=== PATIENT | female | born 1980 | race Two or more races ===

== ENCOUNTER → 2024-05-01 | Outpatient (CLI) | payer MEDICAID, SELFPAY ==
--- NOTE | 2024-05-01 08:45 | XR_ITS ---
Examination: Screening digital mammography, bilateral Computer aided detection 3-D breast Tomosynthesis, bilateral Date and time of exam: May 01, 2024 at 0906 hrs. Indication: Screening Technique: Nonmagnified MLO, CC views of the breasts to been obtained, reconstructed from 3-D Tomosynthesis images. R2 computer aided detection program utilized for evaluation of suspicious masses and/or abnormal calcifications. 3-D Tomosynthesis images obtained. Findings: The breasts are heterogeneously dense, which may obscure small masses Benign calcifications. No suspicious masses Impression: BI-RADS category II: Benign Findings. Recommend 1 year follow-up mammogram.
== END | disposition home or self-care (01) ==
PROVIDERS: PCP Physician Assistant; Referring Provider Physician Assistant; Visit Provider Physician Assistant
DX: Z12.31 Encounter for screening mammogram for malignant neoplasm of breast (principal); R92.323 Mammographic fibroglandular density, bilateral breasts; R92.1 Mammographic calcification found on diagnostic imaging of breast
CPT/HCPCS: 77063; 77067

== ENCOUNTER 2024-11-09 04:51 | Day surgery (SDC) | payer MEDICAID, SELFPAY ==
[2024-11-09] VITALS (11 sets, daily range): BP systolic 86–104; BP diastolic 47–73; PULSE 58–79; RESP 12–18; TEMP 36.3–36.8; O2SAT 89–100; BMI 29.2
--- NOTE | 2024-11-09 05:16 | PD.EDRME ---
Rapid Medical Screening Exam RME Arrival date/time: 11/09/24 04:51 This is a case of 44-year-old female who came in in the emergency room due to vaginal bleeding today patient is 8 weeks patient was already seen by the OB and was told that she is have miscarriage severe vaginal bleeding today this patient decided to start consult here in the emergency room Chief Complaint: OB/Uterine Contractions Time Seen by Provider: 11/09/24 05:18 Vital signs: Vital Signs Temperature 98.2 F 11/09/24 05:05 Pulse Rate 73 11/09/24 05:05 Respiratory Rate 18 11/09/24 05:05 Blood Pressure 102/69 11/09/24 05:05 Pulse Oximetry (%) 98 11/09/24 05:05 Oxygen Delivery Method Room Air 11/09/24 05:05
--- NOTE | 2024-11-09 05:18 | XR_ITS ---
Examination: Complete OB ultrasound, less than 14 weeks, transabdominal Date and time of exam: November 09, 2024, 0558 hours INDICATIONS: Vaginal bleeding beginning 3 hours ago Technique: Obstetrical ultrasound images less than 14 weeks performed via transabdominal imaging Findings: Uterus 10.1 cm endometrium 2.0 cm No intrauterine gestation, no pole, no cardiac activity Right ovary 3.0 cm arterial flow The study terminated before diagnostic assessment left ovary IMPRESSION: Limited study Thickened endometrium No intrauterine gestation, specifically no gestational sac no pole, no cardiac activity
[2024-11-09 06:13] LABS: Basophils # (Auto) 0.1 Thou/mm3 (0.0-0.2); Basophils % (Auto) 1 % (0-2.5); Eosinophils # (Auto) 0.2 Thou/mm3 (0.0-0.5); Eosinophils % (Auto) 3 % (0-10); Hematocrit 37.5 % (36.0-46.0); Hemoglobin 12.3 g/dL (12.0-16.0); Immature Granulocytes Auto 0.02 Thou/mm3 (0.00-0.00); Lymphocytes # (Auto) 3.0 Thou/mm3 (1.0-4.8); Lymphocytes % (Auto) 34 % (10-50); Mean Corpuscular HGB Conc 32.8 g/dl (31.0-37.0); Mean Corpuscular Hemoglobin 27.7 pg (25.0-35.0); Mean Corpuscular Volume 85 fL (80-100); Monocytes # (Auto) 0.7 Thou/mm3 (0.0-0.8); Monocytes % (Auto) 7 % (0-12); Neutrophils # (Auto) 4.9 Thou/mm3 (1.8-7.7); Neutrophils % (Auto) 55 % (37-80); Nucleated Red Blood Cell # 0.00 Thou/mm3 (0.00-0.00); Nucleated Red Blood Cell % 0 /100 WBC (0); Platelet Count 225 Thou/mm3 (140-440); RDW Standard Deviation 55.7 fL (36.4-46.3); Red Blood Count 4.44 Miln/mm3 (4.00-5.20); White Blood Count 8.9 Thou/mm3 (3.6-11.0)
[2024-11-09] MEDS: SODIUM CHLORIDE 0.9% 1000 ML 1,000 ML 999 ML IV (06:18)
--- NOTE | 2024-11-09 06:39 | PD.EDVAGBL ---
ED OB Contraction Preg RMI/HPI General Chief complaint: Vaginal Bleeding Stated complaint: POSS MISCARRIAGE /VAG BLEEDING Time Seen by Provider: 11/09/24 05:18 Arrival date/time: 11/09/24 04:51 RME / HPI RME / HPI Narrative: 11/09/24 04:51 This is a case of 44-year-old female who came in in the emergency room due to vaginal bleeding today patient is 8 weeks patient was already seen by the OB and was told that she is have miscarriage severe vaginal bleeding today this patient decided to start consult here in the emergency room DR. ILA MAYNARD ED EVALUATION 44 year old female who is and ~ 8 weeks gestational age presents to the ED with vaginal bleeding that began early this morning. The patient reports that approximately 2 weeks ago, she was evaluated by her OB Dr. Portillo, who performed an in-office ultrasound and confirmed demise. She began experiencing light spotting about one week ago, which progressed to heavy vaginal bleeding starting around 03:30 AM today. States she has saturated one pad and one adult diaper over the past 3 hours. Just prior to arrival, she reports passing tissue-like material. Associated symptoms include lower back pain and a generalized sense of weakness. She denies fever, abdominal cramping, nausea, vomiting, or syncope. Related Data Home Medications ?Medication ?Instructions ?Recorded ?Confirmed prenat.vits,susan,sgq-ayhu-hiuqv 1 tab PO QDAY 12/03/21 12/03/21 Previous Rx's ?Medication ?Instructions ?Recorded docusate sodium 100 mg capsule 100 mg PO BID #60 caps 12/03/21 (Colace) ibuprofen 600 mg tablet 600 mg PO Q6H PRN pain #90 tabs 12/03/21 Allergies Allergy/AdvReac Type Severity Reaction Status Date / Time No Known Allergies Allergy Verified 12/03/21 15:34 Review of Systems Review of Systems Systems Reviewed: All systems reviewed, normal except as documented Past Medical History Past Medical History MUSCULOSKELETAL: Positive Musculoskeletal Disorders (INJURED DISK) OTHER HISTORY: Positive Hospitalization (PREVIOUS CHILDBIRTH AND D&C) Family History FAMILY HISTORY: Positive Family Cardiac Disorders (PT'S MOTHER HAS HIGH BP) and Family Surgery (PT'S FATHER HAD A TUMOR REMOVED FROM HIS HEAD) Surgical History SURGICAL: Negative Section Social History SMOKING STATUS: Never smoker ED Exam Narrative Physical exam: GENERAL APPEARANCE: alert and oriented x 4, well-developed, well-nourished, appears pale and clammy HEENT: Normocephalic, atraumatic; pupils equal, round, reactive to light; EOMI; mucous membranes pink, moist; oropharynx clear NECK: Supple LUNGS: CTABL; no wheezes, no rales, no rhonchi HEART: Regular rate, regular rhythm; normal S1, S2; no murmurs ABDOMEN: non distended; normal BS; soft, no tenderness, no guarding, no rebound; no masses, no organomegaly, no hernia PELVIC: Passing large clots and actively bleeding from OS, no products of conception visible EXTREMITIES: atraumatic; no edema NEUROLOGIC: awake; alert and oriented x4; cranial nerves II-XII grossly intact; no focal sensory or motor deficits PSYCHIATRIC: appropriate mood and affect SKIN: warm, pale, clammy; no rashes Course Quality Measures none Orders Category Date Time Status Patient Condition Routine Admission 11/09/24 08:[address] in Surgical Day Care Routine Admission 11/09/24 08:21 Active Activity as Tolerated Routine Care 11/09/24 08:21 Ordered COVID-19 Screening Questionnaire NOW Care 11/09/24 08:12 Completed DC Home When Criteria Met . Care 11/09/24 09:17 Completed Decision to Admit X1 Care 11/09/24 08:12 Completed In and Out Catheter X1 Care 11/09/24 08:21 Completed Obtain Written Consent For: NOW Care 11/09/24 08:21 Completed Discharge Routine Discharge 11/09/24 10:41 Active US OB <= 14 weeks fetus Stat Exams 11/09/24 05:18 Completed Beta HCG,Quantitative Stat Lab 11/09/24 06:00 Completed CBC Stat Lab 11/09/24 06:00 Completed Comprehensive Metabolic Panel Stat Lab 11/09/24 06:00 Completed Type and Screen Stat Lab 11/09/24 06:00 Completed Acetaminophen Ivpb [Ofirmev Inj] Med 11/09/24 06:54 Discontinued 1,000 mg in 100 ml IV X1 Methylergonovine Inj [Methergine Inj] Med 11/09/24 06:51 Discontinued 0.2 mg IM X1 ONE Midazolam Inj [Versed Inj] Med 11/09/24 09:10 Discontinued 2 mg .ROUTE .STK-MED ONE Ondansetron Inj [Zofran Inj] Med 11/09/24 09:17 Discontinued 4 mg IVP Q6HR PRN Propofol Inj [Diprivan Inj] Med 11/09/24 09:10 Discontinued 200 mg IV .STK-MED ONE Sevoflurane [Ultane] Med 11/09/24 09:12 Discontinued 15 min INH .STK-MED ONE Sodium Chloride 0.9% 1000 ml [Ns] 1,000 ml Med 11/09/24 06:16 Discontinued IV 999 mls/hr Tranexamic Acid 1,000 mg Ivpb [Tranexamic Acid Ivpb] Med 11/09/24 06:53 Discontinued 1,000 mg in 100 ml IV PRNMRX1 ceFAZolin/D5W 1 GM IVPB [Ancef Ivpb] Med 11/09/24 08:21 Discontinued 1 gm in 50 ml IV X1 fentaNYL INJ [Sublimaze Inj] Med 11/09/24 09:10 Discontinued 100 mcg .ROUTE .STK-MED ONE fentaNYL INJ [Sublimaze Inj] Med 11/09/24 09:17 Discontinued 50 mcg IVP Q5M PRN Code Status Routine Oth 11/09/24 08:21 Completed Oxygen Delivery PRN RT 11/09/24 09:17 Completed Vital Signs Vital signs: Vital Signs Temperature 98.2 F 11/09/24 05:05 Pulse Rate 73 11/09/24 05:05 Respiratory Rate 18 11/09/24 05:05 Blood Pressure 102/69 11/09/24 05:05 Pulse Oximetry (%) 98 11/09/24 05:05 Oxygen Delivery Method Room Air 11/09/24 05:05 Pulse ox is 98% on room air which is adequate. Vaginal Bleeding MDM Narrative MDM Narrative: IPaula am scribing for and in the presence of Dr. Montemayor. Patient became transiently hypotensive while undergoing ultrasound, IV fluids were started and the blood pressure normalized. 0733h: OBGYN Dr. Mann states the patient is refusing the D&C at this time and is requesting a second opinion from her OBGYN Dr. Portillo. However, he is unavailable on the weekends. Advised walking the patient and reassess the amount of bleeding she is having. 0748h: I had a long conversation with the patient and she is now in agreement with plan to undergo D&C. OBGYN Dr. Mann was notified. Patient is a 44 year old female who is and ~ 8 weeks gestational age presents to the ED with vaginal bleeding that began early this morning. The patient reports that approximately 2 weeks ago, she was evaluated by her OB Dr. Portillo, who performed an in-office ultrasound and confirmed demise. She began experiencing light spotting about one week ago, which progressed to heavy vaginal bleeding starting around 03:30 AM today. States she has saturated one pad and one adult diaper over the past 3 hours. Just prior to arrival, she reports passing tissue-like material. Associated symptoms include lower back pain and a generalized sense of weakness. She denies fever, abdominal cramping, nausea, vomiting, or syncope. Patient's blood work was reasonable. Her ultrasound showed no IUP but she continued to have extensive bleeding. I called Dr. Mcmahon patient was taken to the OR for D&C. Patient data External records reviewed:: [facility] previous records (I reviewed ED visit on 04/22/2020 ) Clinical information provided by:: patient Social determinants that could affect healthcare access:: none Patient has the following chronic illnesses:: No chronic medical hx reported How is presenting disease/condition affected by chronic disease/condition?: no chronic disease Evaluation data The following diagnostics were reviewed and interpreted by me:: lab results and radiology exam(s) Lab and/or radiology exams considered but not ordered:: None Interpretation Summary: Ordering Physician: Veto Mcgee Date of Service: 11/09/24 Procedure(s): OB <= 14 weeks fetus Accession Number(s): [id number] cc: Winnie Wise PA-C; Memo Jeong MD; Veto Mcgee~ Examination: Complete OB ultrasound, less than 14 weeks, transabdominal Date and time of exam: November 09, 2024, 0558 hours INDICATIONS: Vaginal bleeding beginning 3 hours ago Technique: Obstetrical ultrasound images less than 14 weeks performed via transabdominal imaging Findings: Uterus 10.1 cm endometrium 2.0 cm No intrauterine gestation, no pole, no cardiac activity Right ovary 3.0 cm arterial flow The study terminated before diagnostic assessment left ovary IMPRESSION: Limited study Thickened endometrium No intrauterine gestation, specifically no gestational sac no pole, no cardiac activity Dictated By: Memo Jeong MD Signed By: <Electronically signed by Memo Jeong MD in OV> 11/09/24 0702 Medications / Prescriptions Medications or Prescriptions considered but not ordered:: None Medication administrations:: Medication Administration History Discontinued Medications Fentanyl Citrate (Fentanyl Cit Inj 50 Mcg/Ml Amp 2ml) Confirm Administered Dose 100 mcg .ROUTE .STK-MED ONE Stop: 11/09/24 09:11 Fentanyl Citrate (Fentanyl Cit Inj 50 Mcg/Ml Amp 2ml) 50 mcg IVP Q5M PRN PRN Reason: PAIN SCALE 7-10 (Severe Stop: 11/09/24 11:17 Sodium Chloride (Ns) 1,000 mls @ 999 mls/hr IV .Q1H1M ONE Stop: 11/09/24 07:16 Last Infusion: 11/09/24 07:23 Dose: Infused Documented By: Admin: 11/09/24 06:18 Dose: 999 mls/hr Documented By: GEETHA Tranexamic Acid (Tranexamic Acid Ivpb) 1,000 mg in 100 mls @ 200 mls/hr IV PRNMRX1 PRN PRN Reason: BLEEDING Acetaminophen (Ofirmev Inj) 1,000 mg in 100 mls @ 250 mls/hr IV X1 ONE Stop: 11/09/24 07:17 Last Infusion: 11/09/24 08:21 Dose: Infused Documented By: Admin: 11/09/24 07:42 Dose: 250 mls/hr Documented By: YVETTE Cefazolin Sodium/Dextrose (Ancef Ivpb) 1 gm in 50 mls @ 50 mls/hr IV X1 ONE Stop: 11/09/24 09:20 Last Infusion: 11/09/24 09:23 Dose: Infused Documented By: Admin: 11/09/24 08:41 Dose: 50 mls/hr Documented By: YVETTE Methylergonovine Maleate (Methylergonovine Inj 0.2 Mg/Ml Vial) 0.2 mg IM X1 ONE Stop: 11/09/24 06:52 Last Admin: 11/09/24 07:41 Dose: 0.2 mg Documented By: YVETTE Midazolam HCl (Midazolam Inj 1 Mg/Ml Vial 2 Ml) Confirm Administered Dose 2 mg .ROUTE .STK-MED ONE Stop: 11/09/24 09:11 Ondansetron HCl (Ondansetron Inj 2 Mg/Ml Inj 2 Ml) 4 mg IVP Q6HR PRN; Protocol PRN Reason: NAUSEA OR VOMITING Stop: 11/09/24 11:17 Propofol (Propofol Inj 10 Mg/Ml Vial 20 Ml) Confirm Administered Dose 200 mg IV .STK-MED ONE Stop: 11/09/24 09:11 Sevoflurane (Sevoflurane 15 Min/Unit Ea) Confirm Administered Dose 15 min INH .STK-MED ONE Stop: 11/09/24 09:13 See above Consultations Consultation(s) initiated? (list below): Yes Consultation #1 (Physician, Specialty, Details): I spoke with OBFORD Mann. Discussed patients PMHx, HPI, ED course, exam findings, labs, and radiology results. She recommends Methergine and TXA. States she will come evaluate the patient in the ED. Time: 06:49 Diagnosis Vaginal Bleeding Differential Diagnosis: threatened , incomplete and vaginal bleeding Most likely diagnosis given after review of the tests above:: Retained products of conception Admission Indicated Admission indicated?: indicated Admission Request Was there a request for admission?: Yes Admission Attestation Admission request attestation: Discussed case with [] from Hospitalist service regarding admission. Discussed patients ED course, exam findings, labs, and radiology results. The Hospitalist [agrees,declines] to accept the patient for admission. Disposition Plan Disposition Plan: Admit Discharge Plan Plan Patient Disposition: Admit Acute Care w/in Hospital Discharge Disposition comment: MADISYN Mann to admit Patient condition on transfer: Stable Problem List Clinical Impression: Retained products of conception Patient/Caregiver Discharge Instructions Discharge Activity: activity as tolerated Other Activity Instructions:: Pelvic rest x 2 weeks Diet Instructions: General Diet as tolerated
[2024-11-09 06:46] LABS: Alanine Aminotransferase 9 U/L (10-49); Albumin, Serum 4.5 gm/dL (3.5-5.0); Albumin/Globulin Ratio 1.7 (1.2-2.2); Alkaline Phosphatase 66 U/L (46-116); Anion Gap 11 (7-16); Aspartate Amino Transferase 18 U/L (0-34); BUN/Creatinine Ratio 10 Ratio (12-20); Beta HCG,Quantitative 3128 mIU/mL (<5.0); Bilirubin,Total 0.5 mg/dL (0.3-1.2); Blood Urea Nitrogen 6 mg/dL (9-23); Calcium 9.7 mg/dL (8.3-10.6); Calcium (Corrected) 9.7 mg/dL (8.5-10.1); Carbon Dioxide 22.1 mMol/L (20.0-31.0); Chloride 107 mMol/L (98-107); Creatinine (Component) 0.6 mg/dL (0.6-1.3); Estimated Creatinine Clearance 100.8 mL/min (>60); Globulin 2.6 gm/dL (2.3-3.5); Glucose 111 mg/dL (74-106); Osmolality,Calculated 278 (275-295); Potassium 4.1 mMol/L (3.4-5.1); Sodium 140 mMol/L (136-145); Total Protein 7.1 gm/dL (5.7-8.2); eGFR > 60 See Note
--- NOTE | 2024-11-09 06:51 | PC.NURSE ---
pt awake at bedside dr harris in the pts room to perform a pelvic exam. dr harris noted that pt is still actively bleeding. pts brief opened up and large amount of bright red blood noted and large dark clots. pts brief changed to clean one. bed low locked side rails up x2
[2024-11-09] MEDS: METHYLERGONOVINE INJ 0.2 MG/ML VIAL IM (07:41)
[2024-11-09] MEDS: ACETAMINOPHEN IVPB 1,000 MG/100 ML VIAL 250 MG IV (07:42)
--- NOTE | 2024-11-09 07:51 | PD.GYNHP ---
Documentation for date of: 11/09/24 CONTEMPORARY OR MODERN DANCER - HPI History of Present Illness History of present illness: Ms. RECIO is a 44 year old -0-2-6 at approximately 8 weeks who presented to the ER reporting bleeding starting at 3:00 this morning. She stated she passed everything and has tissue wrapped in a baby diaper at bedside.. Her daughter is at bedside and translates as the patient is Bahamian-speaking only. Patient has continued to pass clots. An ultrasound revealed a thickened lining of 2 cm but no retained products. Patient's hemoglobin was 12.3. On presentation patient in the ER, her blood pressure currently is 101/63 and pulse is 69. Patient had 1 L of fluids through the IV but now she is hep-locked. Her blood type is O+. Review of Systems Review of Systems Narrative Review of Systems: Positive for passing clots and bleeding. Positive for cramping. No fevers. No foul discharge. Past Medical History Past Medical History Comments PMH COMMENT: Patient denies any surgeries except she had a D&C in 2019 for a 16-week retained placenta. She denies any significant medical history including hypertension diabetes or asthma. From record review on the chart from her previous , she had a history of vaginal delivery in 2001, 2007, 2008, 2009, 2014 ,and 2021. She had a missed AB in 2004 with no D&C and one in 2018 status post D&C of a retained placenta. Meds Home Medications and Allergies Home Medications ?Medication ?Instructions ?Recorded ?Confirmed ?Type prenat.vits,susan,eru-kcmi-gezzz 1 tab PO QDAY 12/03/21 12/03/21 History Allergies Allergy/AdvReac Type Severity Reaction Status Date / Time No Known Allergies Allergy Verified 12/03/21 15:34 Exam - CONTEMPORARY OR MODERN DANCER Vital Signs Temp Pulse Resp BP Pulse Ox O2 Del Method O2 Flow Rate 97.8 F 66 17 98/65 98 Room Air 2 11/09/24 07:35 11/09/24 07:41 11/09/24 07:35 11/09/24 07:41 11/09/24 07:35 11/09/24 07:35 11/09/24 06:08 Constitutional Constitutional: no acute distress and cooperative Comments: Patient appears slightly pale but otherwise in no apparent distress Routine Abdominal Exam Abdominal: Present soft Routine Exam Comments: Pelvic exam deferred as speculum and pelvic exam of just been performed by the ER provider. Patient's abdomen is palpated and the fundus was firm upon pushing on the fundus , the patient passed a couple of large clots about the size of an average [place]. Routine Extremities Exam Comments: No significant edema or erythema Additional findings Additional findings: At bedside patient's pulse is 69 blood pressure 101/63 CONTEMPORARY OR MODERN DANCER - Results Labs 11/09/24 06:00 11/09/24 06:00 Labs: Short CBC 11/09/24 Range/Units 06:00 WBC 8.9 (3.6-11.0) Thou/mm3 Hgb 12.3 (12.0-16.0) g/dL Hct 37.5 (36.0-46.0) % Plt Count 225 (140-440) Thou/mm3 BMP 11/09/24 06:00 Sodium 140 Potassium 4.1 Chloride 107 Carbon Dioxide 22.1 BUN 6 L Creatinine 0.6 Glucose 111 H Calcium 9.7 Liver Function 11/09/24 Range/Units 06:00 Total Bilirubin 0.5 (0.3-1.2) mg/dL AST 18 (0-34) U/L ALT 9 L (10-49) U/L Alkaline Phosphatase 66 (46-116) U/L Albumin 4.5 (3.5-5.0) gm/dL Imaging and Cardiology US - abdomen: Status: image reviewed by me Additional comments: Ultrasound read by radiologist and images reviewed by me revealing a thickened endometrial stripe of 2 cm with no retained products. Assessment and Plan Assessment and plan (1) Incomplete : Status: Acute Assessment and plan: Patient has had continued bleeding. Initially she did not want to pursue a dilation curettage and in fact asked me if she could have a second opinion with Dr. Portillo. I suggested the patient be given IM Methergine and ambulate to see if she passes a lot of clots or is dizzy. The patient then ambulated and felt a little lightheaded. She did discuss dilation and curettage with the ER doctor, DR. Montemayor, and decided that she does desire to proceed with suction dilation curettage. We will call the team in. I consented her for suction dilation curettage. The risks of the procedure were will be discussed with the patient in detail including the risk of bleeding, infection ,uterine perforation, damage to bowel, bladder and other organs if uterine perforation occurs. All questions were answered all consents signed. Blood type is O+. Additional Assessment & Plan Additional Plan: To OR for unscheduled suction dilation and curettage for retained products. Quality Measures Quality Measures none
[2024-11-09] MEDS: ceFAZolin/D5W 1 GM IVPB 1 GM/50 ML BAG IV (08:41)
--- NOTE | 2024-11-09 10:21 | SUR.PHASEI ---
Arrived to recovery bay1 via gurney. Report received from German WILDER and Mac RN. Resting with eyes closed. Respirations even and unlabored. No s/o distress or discomfort. LMA in place. German at bedside. Emelia pad with minimal red drainage.
--- NOTE | 2024-11-09 10:30 | ESOP_ITS ---
Operative Note - MUSICAL INSTRUMENT MECHANIC Procedure Date of procedure: 11/09/24 Procedure Performed: Suction dilation and curettage Indication: The patient is a 44-year-old -0-2-6 who presented to the ER with an incomplete AB. She thinks she passed the fetus at home and brought it in with her. She continued to have bleeding. As patient was still passing clots with an incomplete AB and an ultrasound revealing a thickened stripe of 2 cm, the decision was made to proceed with suction dilation curettage for possible retained products of conception. Pre-Op diagnosis: Complete AB O+ blood type Post-Op diagnosis: same Anesthesia type: General Procedure description: After obtaining informed consent the patient was brought back to the operating room and general anesthesia was administered. She was then prepped and draped in the dorsal lithotomy position using José Miguel stirrups in a normal sterile fashion. The patient's bladder was emptied with an in and out catheter. A weighted speculum was inserted into the patient's vagina and the anterior lip of the cervix grasped with a single-tooth tenaculum at the 12 o'clock position. The cervix was already noted to be 2 cm dilated. I easily passed a size 10 Hegar dilator without difficulty. A size 9 suction curette was inserted through the cervix to the the fundus of the uterus and the suction activated. This was gently rotated in order to clear the uterus of any products of conception. A moderate amount of products of conception and clots were obtained. The patient's endometrium underwent a brisk endometrial curettage with a wide loop endometrial curette. The scrapings were sent down to pathology for further revi ew. The suction curette was introduced one more time and the uterus cleared of any remaining clots and debris. At the end of the procedure, the tenaculum was removed and the tenaculum site noted to be hemostatic. All instrumentation was removed from the patient's vagina. The patient tolerated the procedure well, sponge, lap, instrument, and needle counts were correct x 2. The patient went to the recovery area awake and in stable condition. Pathology was products of conception. Of note I did go back down to the ER to make sure the fetus was sent down to pathology separately and did sign a separate pathology report for the fetus. Fluids: crystalloid Fluid amount (mL): 500 Urine output (mL): 100 Specimen: other (Products of conception from OR, fetus sent separately from ER) Implants: None Estimated blood loss (ml): 150 Findings: Moderate amounts of products of conception and clots present. Cervical os dilated to 2 cm. Complications: none Surgical staff German PRIEST Operation Date: 11/09/24 09:45 <No data on this case meets the specified criteria> Diagnosis Discharge Diagnosis (1) Retained products of conception: Status: Acute Problem details: Status post suction dilation and curettage, Rh+ blood type (2) Incomplete : Status: Acute Problem details: Pelvic rest x 2 weeks will discharge home from recovery. Follow-up with Dr. Portillo in 2 weeks Problem List Completed Was Problem List Reviewed/Reconciled?: Yes
--- NOTE | 2024-11-09 10:38 | ESDS_ITS ---
Planned Discharge Date 11/09/24 DS: Providers Provider Date of admission: 11/09/24 Primary care physician: Winnie Wise PA-C Attending Provider on Admission: Cece Mann [facility] ([facility]) Attending Provider on DC: Cece Mann MD ([facility]) Discharging Provider: Cece Mann MD ([facility]) Anticipated date of discharge: 11/09/24 DS: Diagnosis Discharge Diagnosis (1) Retained products of conception: Status: Acute Assessment & Plan: Status post suction D&C in OR (2) Incomplete : Status: Acute Assessment & Plan: Status post suction D&C in OR. Stable. Follow-up with Dr. Portillo in 2 weeks. Problem List Completed Was Problem List Reviewed/Reconciled?: Yes Hospital Course Hospital Course Hospital course: Ms. RECIO is a 44 year old -0-2-6 at approximately 8 weeks who presented to the ER reporting bleeding starting at 3:00 this morning. She stated she passed everything and has tissue wrapped in a baby diaper at bedside.. Her daughter is at bedside and translates as the patient is [place]-speaking only. Patient has continued to pass clots. An ultrasound revealed a thickened lining of 2 cm but no retained products. Patient's hemoglobin was 12.3. On presentation patient in the ER, her blood pressure currently is 101/63 and pulse is 69. Patient had 1 L of fluids through the IV but now she is hep-locked. Her blood type is O+. Please see history and physical for further details. Patient consented for suction dilation and curettage as she continued to have bleeding. She underwent an uncomplicated suction dilation and curettage at approximately 10:00 in the morning 01/09/2025. EBL was 150 cc. Please see op report for further details. She had an uncomplicated postop course and went home approximately an hour to 2 hours after surgery. Discharge instructions included pelvic rest x 2 weeks. Follow-up with Dr. Portillo in 2 weeks. Status at Discharge Cognitive/behavioral status at discharge: Alert and oriented x 3 in no apparent distress Functional status at discharge: independent ambulation Overall status at discharge: patient is progressing back to baseline Time Spent with Patient Time attestation: Total time spent providing and/or coordinating discharge services: Time spent: Less than 30 minutes Specific discharge activities: Pelvic rest x 2 weeks Exam - LBD TEACHER Vital Signs Temp Pulse Resp BP Pulse Ox O2 Del Method O2 Flow Rate 97.4 F 61 12 86/47 L 89 L Room Air 10 11/09/24 10:21 11/09/24 10:21 11/09/24 10:21 11/09/24 10:21 11/09/24 10:21 11/09/24 07:35 11/09/24 10:21 Discharge Plan Plan Patient Disposition: HOME (Self Care) Patient condition on transfer: Stable Prescriptions/Referrals Prescriptions/Med Rec: Continued prenat.vits,susan,[id number] Tablet 1 tab PO QDAY docusate sodium [Colace] 100 mg capsule 100 mg PO BID Qty: 60 0RF ibuprofen 600 mg tablet 600 mg PO Q6H PRN (Reason: pain) Qty: 90 0RF Discontinued lanolin 50 % ointment 1 applic topical TID PRN (Reason: skin irritation) Qty: 15 0RF Referrals: Winnie Wise PA-C [Primary Care Provider] - In 1 week Patient/Caregiver Discharge Instructions Discharge Activity: activity as tolerated Other Discharge Activity Instructions:: Pelvic rest x 2 weeks Other Discharge Diet Instructions: General Diet as tolerated Education Materials: Surgery Anesthesia After, D [facility] General Discharge-[place] Print Language: [place] Stand Alone Forms: [facility] Award Info., Patient Portal Info Letter Discharge Order Discharge Orders: Discharge (Routine); Ordered 11/09/24 Ordered By: Cece Mann ([facility])
--- NOTE | 2024-11-09 11:20 | SUR.PHASEII ---
Emelia pad with minimal red drainage. Able to get self dressed and ambulate to w/c. No c/o pain or discomfort. Discharged to sister. Both sister and patient verbalized understanding all discharge instructions. Taken to first floor via w/c by Liu ALLEN.
== END 2024-11-09 11:20 | disposition home or self-care (01) ==
LOC: SERX 08:28 → S2EX 08:29
PROVIDERS: Nurse Practitioner Family; Emergency Provider Emergency Medicine; PCP Physician Assistant; Referring Provider Obstetrics & Gynecology; Visit Provider Obstetrics & Gynecology
PROC: (CPT 58120; principal; 2024-11-09 09:30)
DX: O03.4 Incomplete spontaneous abortion without complication (principal); R93.89 Abnormal findings on diagnostic imaging of other specified body structures; Z01.810 Encounter for preprocedural cardiovascular examination
CPT/HCPCS: 59812; 36415; 76801; 80053; 81001; 84702; 85025; 86850; 86900; 86901; 96361; 96365; 96372; 99283; A4217; A4649; J0131; J0689; J2210; J2250; J2704; J3010; J7030